=== PATIENT | male | born 1980 | race Caucasian/White ===

== ENCOUNTER 2024-07-29 05:41 | Emergency (ER) | payer BC ==
[2024-07-29 05:53] VITALS: RESP 16; TEMP 97.4
[2024-07-29] MEDS ORDERED: HYDROmorphone 1 MG/ML 1 ML SYRINGE IVP STA (05:58)
[2024-07-29] MEDS: HYDROmorphone 1 MG/ML 1 ML SYRINGE IM STA (06:05)
[2024-07-29] MEDS: TERBUTALINE 1 MG/ML VIAL SQ STA ×2 (06:42→07:39)
--- NOTE | 2024-07-29 06:48 | ED ---
Male Urogenital HPI - General Source: patient, RN notes reviewed Mode of arrival: ambulatory Limitations: no limitations <Tierra Brannon - Last Filed: 07/29/24 08:16> <Master Mcmillan - Last Filed: 07/29/24 10:08> - General Chief complaint: Urogenital Stated complaint: Groin Pain Time Seen by Provider: 07/29/24 05:58 - History of Present Illness Initial comments: This is a 43-year-old male who presents to the emergency department for a prolonged erection. States that the erection started around 1 AM. He gave himself a peptide injection for the first time today about an hour before hand. After the injection he had sexual intercourse and went to bed. When he went to bed there were no problems. He then woke up with an erection. 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 This occurred in [place] in 2014 and at that point required urological intervention with a shunt. No longer taking trazodone. At [facility] about a month ago he had a urethral dilation as well. Denies a history of sickle cell disease. Denies any illicit drug use. He is on Suboxone. (Tierra Brannon) - Related Data Allergies Allergy/AdvReac Type Severity Reaction Status Date / Time trazodone Allergy Unknown Verified 07/29/24 05:48 Review of Systems ROS Other: All systems not noted in ROS Statement are negative. <Tierra Brannon - Last Filed: 07/29/24 08:16> ROS Other: All systems not noted in ROS Statement are negative. <Master Mcmillan - Last Filed: 07/29/24 10:08> ROS Statement: Those systems with pertinent positive or pertinent negative responses have been documented in the HPI. Past Medical History Past Medical History: No Reported History History of Any Multi-Drug Resistant Organisms: None Reported Additional Past Surgical History / Comment(s): uretheral dilation Past Psychological History: No Psychological Hx Reported Smoking Status: Former smoker Past Alcohol Use History: None Reported Past Drug Use History: None Reported <Tierra Brannon - Last Filed: 07/29/24 08:16> General Exam Limitations: no limitations General appearance: alert, in no apparent distress Head exam: Present: atraumatic, normocephalic, normal inspection Respiratory exam: Present: normal lung sounds bilaterally. Absent: respiratory distress, wheezes, rales, rhonchi, stridor Cardiovascular Exam: Present: regular rate, normal rhythm, normal heart sounds. Absent: systolic murmur, diastolic murmur, rubs, gallop, clicks exam: Present: other (Erect penile shaft with soft glans) Neurological exam: Present: alert, oriented X3, CN II-XII intact Psychiatric exam: Present: normal affect, normal mood Skin exam: Present: warm, dry, intact, normal color. Absent: rash <Tierra Brannon - Last Filed: 07/29/24 08:16> Course Vital Signs 07/29/24 07/29/24 05:50 09:52 Temperature 97.4 F L Pulse Rate 80 81 Respiratory 16 16 Rate Blood Pressure 122/62 109/66 O2 Sat by Pulse 99 94 L Oximetry Procedures <Master Mcmillan - Last Filed: 07/29/24 10:08> - Procedures Initial comment: Cavernosum injection was performed. Per request by urology recommended lidocaine with epinephrine. 1 cc was injected at the 3 and 9 o'clock position on the penis. Aspiration was performed with aspiration of dark blood. Some detumescence was achieved after initial 1 cc injection to the left cavernosum. Second cc of lidocaine with epinephrine was injected into the right cavernosum with more detumescence. Patient observed for another 10 minutes. Patient reevaluated at 9:20 AM with almost complete detumescence. (Master Mcmillan) Medical Decision Making - Lab Data Result diagrams: 07/29/24 07:27 07/29/24 07:27 <Tierra Brannon - Last Filed: 07/29/24 08:16> - Lab Data Result diagrams: 07/29/24 07:27 07/29/24 07:27 <Master Mcmillan - Last Filed: 07/29/24 10:08> - Medical Decision Making This is a 43-year-old male who presents to the emergency department for a prolonged erection Was pt. sent in by a medical professional or institution? @ -No Did you speak to anyone other than the patient for history? @ -No Did you review nursing and triage notes? @ -Yes, and I agree, it is accurate with regards to the patient's symptoms. Were old charts reviewed? @ -No Differential Diagnosis? @ -Differential prolonged erection: Priapism, Peyronie's disease, urethral foreign body, penile surgical implant, this is not meant to be an all-inclusive list. EKG interpreted by me (3pts min.)? @ -Not obtained X-rays interpreted by me (1pt min.)? @ -Not obtained CT interpreted by me (1pt min.)? @ -Not obtained U/S interpreted by me (1pt. min.)? @ -[none] What testing was considered but not performed? (CT, X-rays, U/S, labs)? Why? @ -None What meds were considered but not given? Why? @ -None Did you discuss the management of the patient with other professionals? @ -No Did you reconcile home meds? @ -No Was smoking cessation discussed for >3mins.? @ -No Was critical care preformed (if so, how long)? @ -No Were there social determinants of health that impacted care today? How? (Homelessness, low income, unemployed, alcoholism, drug addiction, transportation, low edu. Level, literacy, decrease access to med. care, half-way, rehab)? @ -No Was there de-escalation of care discussed even if they declined? (Discuss DNR or withdrawal of care, Hospice)? @ -No What co-morbidities impacted this encounter? (DM, HTN, Smoking, COPD, CAD, Cancer, CVA, Hep., AIDS, mental health diagnosis, sleep apnea, morbid obesity)? @ -None Was patient admitted / discharged? @ -Patient's physical examination and presentation are consistent with low flow priapism. Undiagnosed new problem with uncertain prognosis? @ -None Drug Therapy requiring intensive monitoring for toxicity (Heparin, Nitro, Insulin, Cardizem)? @ -None Were any procedures done? @ -None Diagnosis/symptom? @ -[default] Acute, or Chronic, or Acute on Chronic? @ -[default] Uncomplicated (without systemic symptoms) or Complicated (systemic symptoms)? @ -[default] Side effects of treatment? @ -[none] Exacerbation, Progression, or Severe Exacerbation] @ -Not applicable Poses a threat to life or bodily function? @ -[no] (Vogley,Tierra) 10:04 AM: Patient reevaluated at the bedside with complete detumescence of his penis. Case discussed with Dr. Denise states that patient can be discharged advised follow-up with urologist. Patient also counseled on not using peptide 141. Was pt. sent in by a medical professional or institution (, PA, [employer], urgent care, hospital, or prison...) When possible be specific @ -No Did you speak to anyone other than the patient for history (EMS, parent, family, police, friend...)? What history was obtained from this source @ -No Did you review nursing and triage notes (agree or disagree)? Why? @ -I reviewed and agree with nursing and triage notes Were old charts reviewed (outside hosp., previous admission, EMS record, old EKG, old radiological studies, urgent care reports/EKG's, prison records)? Report findings @ -No old charts were reviewed Differential Diagnosis (chest pain, altered mental status, abdominal pain women, abdominal pain men, vaginal bleeding, musculoskeletal, weakness, fever, dyspnea, syncope, headache, dizziness, GI bleed, back pain, seizure, CVA, palpatations, mental health)? @ -Priapism, penile fracture, cellulitis EKG interpreted by me (3pts min.). @ -None done X-rays interpreted by me (1pt min.). @ -None done CT interpreted by me (1pt min.). @ -None done U/S interpreted by me (1pt. min.). @ -None done What testing was considered but not performed or refused? (CT, X-rays, U/S, labs)? Why? @ -None What meds were considered but not given or refused? Why? @ -None Was smoking cessation discussed for >3mins.? @ -No Were there social determinants of health that impacted care today? How? (Homelessness, low income, unemployed, alcoholism, drug addiction, transportation, low edu. Level, literacy, decrease access to med. care, half-way, rehab)? @ -No Was there de-escalation of care discussed even if they declined (Discuss DNR or withdrawal of care, Hospice)? DNR status @ -No What co-morbidities impacted this encounter? (DM, HTN, Smoking, COPD, CAD, Cancer, CVA, ARF, Chemo, Hep., AIDS, mental health diagnosis, sleep apnea, morbid obesity)? @ -Priapism Was patient admitted / discharged? Hospital course, mention meds given and route, prescriptions, significant lab abnormalities, going to OR and other pertinent info. @ -43-year-old male brought to the emergency department for priapism. Vital signs upon arrival are within acceptable limits. Laboratory evaluation obtained. Labs are within acceptable limits. Case discussed with Dr. Denise as described above. Procedure performed as described above. Patient achieved complete detumescence by 10:00 AM. Case discussed with Dr. King who reports that if there is detumescence that patient can be discharged to follow-up with his urologist. Patient advised not to use that peptide. Patient agreeable for discharge. Return precautions discussed. Did you discuss the management of the patient with other professionals (professionals i.e. , PA, [employer], lab, RT, psych nurse, renal social worker, commission broker, teacher, records officer, case managers)? Give summary @ -See above Was critical care preformed (if so, how long)? @ -Yes, 33 minutes for Undiagnosed new problem with uncertain prognosis? @ -No Drug Therapy requiring intensive monitoring for toxicity (Heparin, Nitro, Insulin, Cardizem)? @ -No Were any procedures done? @ -No Diagnosis/symptom? Acute, or Chronic, or Acute on Chronic? Uncomplicated (without systemic symptoms) or Complicated (systemic symptoms)? @ -Priapism Side effects of treatment? @ -No Exacerbation, Progression, or Severe Exacerbation? @ -No Poses a threat to life or bodily function? How? (Chest pain, [place], [place], pneumonia, PE, COPD, DKA, ARF, appy, cholecystitis, CVA, Diverticulitis, Homicidal, Suicidal, threat to staff... and all critical care pts) @ -yes (Master Mcmillan) - Lab Data Lab Results 07/29/24 07/29/24 07/29/24 Range/Units 07:22 07:27 07:27 WBC 15.5 H (3.8-10.6) k/uL RBC 4.71 (4.30-5.90) m/uL Hgb 15.1 (13.0-17.5) gm/dL Hct 45.9 (39.0-53.0) % MCV 97.6 (80.0-100.0) fL MCH 32.2 (25.0-35.0) pg MCHC 33.0 (31.0-37.0) g/dL RDW 12.7 (11.5-15.5) % Plt Count 244 (150-450) k/uL MPV 7.4 Neutrophils % 82 % Lymphocytes % 11 % Monocytes % 4 % Eosinophils % 2 % Basophils % 0 % Neutrophils # 12.8 H (1.3-7.7) k/uL Lymphocytes # 1.7 (1.0-4.8) k/uL Monocytes # 0.6 (0-1.0) k/uL Eosinophils # 0.3 (0-0.7) k/uL Basophils # 0.0 (0-0.2) k/uL PT (10.0-12.5) sec INR (<1.2) APTT (22.0-30.0) sec Sodium 139 (137-145) mmol/L Potassium 3.5 (3.5-5.1) mmol/L Chloride 107 (98-107) mmol/L Carbon Dioxide 20 L (22-30) mmol/L Anion Gap 12 mmol/L BUN 18 (9-20) mg/dL Creatinine 0.86 (0.66-1.25) mg/dL Est GFR (CKD-EPI)AfAm >90 (>60 ml/min/1.73 sqM) Est GFR (CKD-EPI)NonAf >90 (>60 ml/min/1.73 sqM) Glucose 106 H (74-99) mg/dL Plasma Lactic Acid Narciso (0.7-2.0) mmol/L Calcium 8.9 (8.4-10.2) mg/dL Total Bilirubin 0.4 (0.2-1.3) mg/dL AST 33 (17-59) U/L ALT 31 (4-49) U/L Alkaline Phosphatase 54 (38-126) U/L Total Protein 7.1 (6.3-8.2) g/dL Albumin 4.3 (3.5-5.0) g/dL Blood Type Blood Type Confirm O Negative Blood Type Recheck Bld Type Recheck Status Antibody Screen Spec Expiration Date 09/07/29/24 07/29/24 Range/Units 07:27 07:27 07:27 WBC (3.8-10.6) k/uL RBC (4.30-5.90) m/uL Hgb (13.0-17.5) gm/dL Hct (39.0-53.0) % MCV (80.0-100.0) fL MCH (25.0-35.0) pg MCHC (31.0-37.0) g/dL RDW (11.5-15.5) % Plt Count (150-450) k/uL MPV Neutrophils % % Lymphocytes % % Monocytes % % Eosinophils % % Basophils % % Neutrophils # (1.3-7.7) k/uL Lymphocytes # (1.0-4.8) k/uL Monocytes # (0-1.0) k/uL Eosinophils # (0-0.7) k/uL Basophils # (0-0.2) k/uL PT 11.1 (10.0-12.5) sec INR 1.0 (<1.2) APTT 24.5 (22.0-30.0) sec Sodium (137-145) mmol/L Potassium (3.5-5.1) mmol/L Chloride (98-107) mmol/L Carbon Dioxide (22-30) mmol/L Anion Gap mmol/L BUN (9-20) mg/dL Creatinine (0.66-1.25) mg/dL Est GFR (CKD-EPI)AfAm (>60 ml/min/1.73 sqM) Est GFR (CKD-EPI)NonAf (>60 ml/min/1.73 sqM) Glucose (74-99) mg/dL Plasma Lactic Acid Narciso 0.7 (0.7-2.0) mmol/L Calcium (8.4-10.2) mg/dL Total Bilirubin (0.2-1.3) mg/dL AST (17-59) U/L ALT (4-49) U/L Alkaline Phosphatase (38-126) U/L Total Protein (6.3-8.2) g/dL Albumin (3.5-5.0) g/dL Blood Type O Negative Blood Type Confirm Blood Type Recheck No Previous Record Bld Type Recheck Status CABO Indicated Antibody Screen NEGATIVE Spec Expiration Date 08/01/20242326 Disposition <Tierra Brannon - Last Filed: 07/29/24 08:16> Is patient prescribed a controlled substance at d/c from ED?: No Time of Disposition: 10:07 <Master Mcmillan - Last Filed: 07/29/24 10:08> Clinical Impression: Priapism Disposition: HOME SELF-CARE Condition: Fair Instructions (If sedation given, give patient instructions): [place] (ED) Additional Instructions: Follow-up with your established urologist
[2024-07-29] MEDS ORDERED: PHENYLEPHRINE 10 MG/ML VIAL IM STA (07:23)
[2024-07-29] MEDS ORDERED: PHENYLEPHRINE INTRA-CAVE PRN (07:31)
[2024-07-29] MEDS ORDERED: NACL SYG INTRA-CAVE PRN (07:31)
[2024-07-29] MEDS: HYDROmorphone 1 MG/ML 1 ML SYRINGE IVP STA ×2 (07:38→09:54)
[2024-07-29 07:40] LABS: Basophils % (A) 0 %; Eosinophils # (A) 0.3 k/uL (0-0.7); Eosinophils % (A) 2 %; HCT 45.9 % (39.0-53.0); HGB 15.1 gm/dL (13.0-17.5); Lymphocytes # (A) 1.7 k/uL (1.0-4.8); Lymphocytes % (A) 11 %; MCH 32.2 pg (25.0-35.0); MCV 97.6 fL (80.0-100.0); Mean Platelet Volume 7.4; Monocytes # (A) 0.6 k/uL (0-1.0); Monocytes % (A) 4 %; Neutrophils # (A) 12.8 k/uL (1.3-7.7); Neutrophils % (A) 82 %; Platelet Count 244 k/uL (150-450); RBC 4.71 m/uL (4.30-5.90); RDW 12.7 % (11.5-15.5); WBC 15.5 k/uL (3.8-10.6)
[2024-07-29 07:46] LABS: Partial Thromboplastin Time 24.5 sec (22.0-30.0); Prothrombin Time 11.1 sec (10.0-12.5)
[2024-07-29 07:51] LABS: ALT 31 U/L (4-49); AST 33 U/L (17-59); African American GFR (CKD) >90 (>60 ml/min/1.73 sqM); Albumin 4.3 g/dL (3.5-5.0); Alkaline Phosphatase 54 U/L (38-126); Anion Gap 12 mmol/L; Blood Urea Nitrogen 18 mg/dL (9-20); Calcium 8.9 mg/dL (8.4-10.2); Carbon Dioxide 20 mmol/L (22-30); Chloride 107 mmol/L (98-107); Glucose 106 mg/dL (74-99); Non-African American GFR(CKD) >90 (>60 ml/min/1.73 sqM); Potassium 3.5 mmol/L (3.5-5.1); Sodium 139 mmol/L (137-145); Total Bilirubin 0.4 mg/dL (0.2-1.3); Total Protein 7.1 g/dL (6.3-8.2)
[2024-07-29] MEDS: LIDOCAINE 2%-EPI 1:100,000 20 ML VIAL SQ STA (10:27)
[2024-07-29] MEDS: LIDOCAINE 1% INJ 10MG/ML (20 ML MDV) SQ ONE (10:28)
[2024-07-29 10:31] VITALS: PULSE 70
[2024-07-29 10:35] VITALS: BP 117/67
== END 2024-07-29 10:28 | disposition home or self-care (01) ==
LOC: EC 05:41
CPT/HCPCS: 36415; 80053; 83605; 85025; 85610; 85730; 86850; 86900; 86901; 96372; 96374; 96375; 99283